=== PATIENT | female | born 1990 | race Caucasian/White ===

== ENCOUNTER 2017-05-29 15:54 | Emergency (ER) | payer OTHER ==
[2017-05-29] MEDS ORDERED: Lidocaine 1% 30 ML SDV INJECT ONE (16:18)
[2017-05-29] MEDS ORDERED: Take Home: traMADol 50 MG, 4 Tab Pack PO ONE (17:01)
[2017-05-29 18:19] VITALS: BP 135/85
--- NOTE | 2017-05-30 04:42 | ER ---
Date of Service: 05/29/2017 SUBJECTIVE: Donna presents to the emergency room with complaints of pain to her left great toe. She states that she stubbed the toe while walking through water last evening. She states that after she stubbed her toe she noticed that her toenail had partially removed from the edge of the nail matrix of the left great toe. She denies any injury other than what is isolated to her left great toe. PAST MEDICAL HISTORY: 1. Endometriosis. 2. Interstitial cystitis. 3. Depression. 4. Anxiety. 5. Willebrand syndrome. MEDICATION: Klonopin 0.5 mg p.o. b.i.d. p.r.n. REVIEW OF SYSTEMS: Denies any injury other than what is isolated to left great toe. She states that she is able to move the extremity. Denies any numbness or tingling in the extremity. PHYSICAL EXAMINATION: General: This is a 26-year-old female patient, who is in mild amount of distress. Vital Signs: Blood pressure is 135/85, pulse rate is 81, temperature is 36.9, and respiratory rate 16. Skin: Warm, pink, and dry. Musculoskeletal: The patient does have edema to the left great toe. She also does have discoloration on underside of the toenail consistent with subungual hematoma. Neurologic: Her range of motion to the toe was within normal limits. RADIOGRAPHIC DATA: Radiographs of the patient's left great toe were obtained. There, it did not appear to be any obvious fracture or dislocation. EMERGENCY ROOM COURSE: The patient's toe was prepped and draped in usual sterile fashion. A total of 5 mL of 1% lidocaine was used to anesthetize the digit. The nail bed was trephinated with 3 nails using Bovie cautery pen. There was some expulsion of small amount of blood through the nail. The patient tolerated this well. She remained stable in my care in the emergency room. ASSESSMENT: Contusion to left great toe with subungual hematoma. PLAN: Keep the toe wrapped for the next 48 hours then she should soak the toe approximately 3 times daily to help keep the trephination holes open and draining. Return to the emergency room in the next 5 to 7 days if continuing to have discomfort for repeat radiographs. All questions answered. MWK: 05/30/2017 03:38:05 MODL: 05/30/2017 04:31:12 /[id number]
== END 2017-05-29 17:15 | disposition home or self-care (01) ==
LOC: VM.ED 15:54
DX: S90.112A Contusion of left great toe without damage to nail, initial encounter (principal); F41.9 Anxiety disorder, unspecified; F32.9 Major depressive disorder, single episode, unspecified; Z88.8 Allergy status to other drugs, medicaments and biological substances; W22.8XXA Striking against or struck by other objects, initial encounter
CPT/HCPCS: 11740; 73660; 99283; A9270

== ENCOUNTER 2017-12-05 12:49 | Emergency (ER) | payer BC, OTHER ==
[2017-12-05 13:27] VITALS: BP 126/59
[2017-12-05] MEDS ORDERED: Sodium Chloride 0.9% 1,000 ML IV ONE (13:30)
[2017-12-05] MEDS ORDERED: Ondansetron 4 MG/2 ML SDV IVPUSH ONE (13:30)
[2017-12-05] MEDS ORDERED: HYDROmorphone 1 MG/ML Syringe IVPUSH ONE (13:30)
[2017-12-05 14:20] LABS: CHLORIDE,CL 103 mmol/L (98-107); SODIUM,NA 141 mmol/L (136-145)
[2017-12-05] MEDS ORDERED: Iopamidol 612 MG/ML 100 ML Bottle IVPUSH ONE (14:48)
[2017-12-05] MEDS ORDERED: Metoclopramide 10 MG/2 ML SDV IVPUSH ONE (15:15)
--- NOTE | 2017-12-06 02:18 | EDM.PDOC ---
ED HPI GENERAL MEDICAL PROBLEM - General Chief Complaint: Abdominal Pain Stated Complaint: ABDOMINAL PAIN Time Seen by Provider: 12/05/17 12:49 Source of Information: Reports: Patient History Limitations: Reports: No Limitations - History of Present Illness INITIAL COMMENTS - FREE TEXT/NARRATIVE: Pt. presents to ER with complaints of upper abdominal pain, localizing more in the RUQ. Pt. had a gallbladder US last Tuesday and states that she was also started on ranitidine at that time. She states that shes not experiencing any fever or chills. No weakness. No nausea/vomiting. The ultrasound revealed evidence of R sided hydronephrosis. She has no hematuria and no history of fever or chills. She denies any substernal chest pain. Onset Date: 11/28/17 Location: Reports: Abdomen Quality: Reports: Ache, Pressure Severity: Severe Improves with: Reports: None Context: Reports: Activity, Lifting Associated Symptoms: Reports: Nausea/Vomiting. Denies: No Other Symptoms, Fever /Chills Epigastric Pain Score (Numeric/FACES): 3 - Related Data Allergies Allergy/AdvReac Type Severity Reaction Status Date / Time No Known Allergies Allergy Verified 12/05/17 17:49 Home Meds: Home Meds Acetaminophen/Codeine [Tylenol with Codeine No.3 300MG/30MG] 1 tab PO Q4H PRN [History] Norethindrone-E.estradiol-Iron [Blisovi 24 Fe Tablet] 1 tab PO ASDIRECTED [History] Ranitidine HCl [Ranitidine] 150 mg PO BID 12/05/17 [History] Past Medical History Genitourinary History: Reports: Other (See Below) Other Genitourinary History: interstitial cystitis [employer] History: Reports: Endometriosis, Other (See Below) Other OB/BYN History: ovarian cysts, Psychiatric History: Reports: ADD, Anxiety, Depression, Panic Attack Hematologic History: Reports: Other (See Below) Other Hematologic History: Bentley Dawkins - Past Surgical History GI Surgical History: Reports: Appendectomy Female Surgical History: Reports: Other (See Below) Other Female Surgeries/Procedures: laparoscopic X3 for endometriosis Social & Family History - Tobacco Use Smoking Status *Q: Never Smoker - Recreational Drug Use Recreational Drug Use: Yes Drug Use in Last 12 Months: Yes Recreational Drug Type: Reports: Marijuana/Hashish Recreational Drug Use Frequency: Rarely ED ROS GENERAL - Review of Systems Review Of Systems: See Below Constitutional: Reports: No Symptoms HEENT: Reports: No Symptoms Respiratory: Reports: No Symptoms Cardiovascular: Reports: No Symptoms Endocrine: Reports: No Symptoms GI/Abdominal: Reports: Abdominal Pain, Anorexia, Decreased Appetite, Nausea, Vomiting. Denies: Black Stool, Bloody Stool, Constipation, Diarrhea, Hematochezia, Stool Incontinence : Reports: No Symptoms Musculoskeletal: Reports: No Symptoms Skin: Reports: No Symptoms Neurological: Reports: No Symptoms, Paresthesia, Pre-Existing Deficit Psychiatric: Reports: No Symptoms Hematologic/Lymphatic: Reports: No Symptoms Immunologic: Reports: No Symptoms ED EXAM, GI/ABD - Physical Exam Exam: See Below Exam Limited By: No Limitations General Appearance: Alert, WD/WN, No Apparent Distress Eyes: Bilateral: Normal Appearance, EOMI Nose: Normal Inspection, Normal Mucosa, No Blood Throat/Mouth: Normal Inspection, Normal Lips, Normal Teeth, Normal Gums, Normal Oropharynx, Normal Voice, No Airway Compromise Head: Atraumatic, Normocephalic Neck: Normal Inspection, Supple, Non-Tender, Full Range of Motion Respiratory/Chest: No Respiratory Distress, Lungs Clear, Normal Breath Sounds, No Accessory Muscle Use, Chest Non-Tender Cardiovascular: Normal Peripheral Pulses, Regular Rate, Rhythm, No Edema, No Gallop, No JVD, No Murmur, No Rub GI/Abdominal Exam: Normal Bowel Sounds, Soft, Non-Tender, No Organomegaly, No Distention, No Abnormal Bruit, No Mass, Pelvis Stable (Female) Exam: Deferred Rectal (Female) Exam: Deferred Back Exam: Normal Inspection, Full Range of Motion, NT Extremities: Normal Inspection, Normal Range of Motion, Non-Tender, Normal Capillary Refill, No Pedal Edema Neurological: Alert, Oriented, CN II-XII Intact, Normal Cognition, Normal Gait, Normal Reflexes, No Motor/Sensory Deficits Psychiatric: Normal Affect, Normal Mood Skin Exam: Warm, Dry, Intact, Normal Color, No Rash Lymphatic: No Adenopathy Course - Vital Signs Last Recorded V/S: Last Vital Signs Temp 36.9 C 12/05/17 13:00 Pulse 85 12/05/17 13:00 Resp 16 12/05/17 13:00 BP 126/59 L 12/05/17 13:00 Pulse Ox 99 12/05/17 13:00 - Orders/Labs/Meds Orders: Active Orders 24 hr Category Date Time Status Abdomen Pelvis w Cont [CT] Stat Exams 12/05/17 14:44 Taken Labs: Laboratory Tests 12/05/17 12/05/17 12/05/17 Range/Units 13:30 13:45 13:45 WBC 8.2 (4.0-10.0) x10^3/uL RBC 4.10 (4.00-5.50) x10^6/uL Hgb 13.2 (12.0-16.0) g/dL Hct 38.8 (33.0-47.0) % MCV 94.6 H (78.0-93.0) fL MCH 32.2 H (26.0-32.0) pg MCHC 34.0 (32.0-36.0) g/dL RDW Coeff of Meghan 12.0 (10.0-15.0) % Plt Count 285 (130-400) x10^3/uL Neut % (Auto) 61.1 (50.0-80.0) % Lymph % (Auto) 28.0 (25.0-50.0) % Greene % (Auto) 7.8 (2.0-11.0) % Eos % (Auto) 2.9 (0.0-4.0) % Baso % (Auto) 0.2 (0.2-1.2) % Sodium 141 (136-145) mmol/L Potassium 4.2 (3.5-5.1) mmol/L Chloride 103 (98-107) mmol/L Carbon Dioxide 27 (21-32) mmol/L BUN 13 (7-18) mg/dL Creatinine 0.7 (0.55-1.02) mg/dL Est Cr Clr Drug Dosing 92.37 mL/min Estimated GFR (MDRD) > 60 Glucose 77 (74-106) mg/dL Calcium 9.3 (8.5-10.1) mg/dL Corrected Calcium 8.98 (8.5-10.1) mg/dL Total Bilirubin 0.4 (0.2-1.0) mg/dL AST 15 (15-37) U/L ALT 25 (14-59) U/L Alkaline Phosphatase 62 (46-116) U/L C-Reactive Protein < 0.2 (<=0.9) mg/dL Total Protein 7.7 (6.4-8.2) g/dL Albumin 4.4 (3.4-5.0) g/dL Globulin 3.3 Albumin/Globulin Ratio 1.33 Amylase 57 (25-115) U/L Urine Color Yellow (YELLOW) Urine Appearance Cloudy H (CLEAR) Urine pH 7.5 (5.0-8.0) Ur Specific [place] 1.020 Urine Protein Negative (NEGATIVE) mg/dL Urine Glucose (UA) Negative (NEGATIVE) mg/dL Urine Ketones Negative (NEGATIVE) mg/dL Urine Occult Blood Negative (NEGATIVE) Urine Nitrite Negative (NEGATIVE) Urine Bilirubin Negative (NEGATIVE) Urine Urobilinogen 0.2 (0.2) EU/dL Ur Leukocyte Esterase Trace H (NEGATIVE) Urine RBC 0-5 (NOT SEEN) /HPF Urine WBC 5-10 H (NOT SEEN) /HPF Ur Squamous Epith Cells Many H (NEGATIVE) /HPF Urine Bacteria Moderate H (NEGATIVE) /HPF Urine Mucus Few H (NEGATIVE) /LPF POC Urine HCG, Qual 12/05/17 Range/Units 13:45 WBC (4.0-10.0) x10^3/uL RBC (4.00-5.50) x10^6/uL Hgb (12.0-16.0) g/dL Hct (33.0-47.0) % MCV (78.0-93.0) fL MCH (26.0-32.0) pg MCHC (32.0-36.0) g/dL RDW Coeff of Meghan (10.0-15.0) % Plt Count (130-400) x10^3/uL Neut % (Auto) (50.0-80.0) % Lymph % (Auto) (25.0-50.0) % Greene % (Auto) (2.0-11.0) % Eos % (Auto) (0.0-4.0) % Baso % (Auto) (0.2-1.2) % Sodium (136-145) mmol/L Potassium (3.5-5.1) mmol/L Chloride (98-107) mmol/L Carbon Dioxide (21-32) mmol/L BUN (7-18) mg/dL Creatinine (0.55-1.02) mg/dL Est Cr Clr Drug Dosing mL/min Estimated GFR (MDRD) Glucose (74-106) mg/dL Calcium (8.5-10.1) mg/dL Corrected Calcium (8.5-10.1) mg/dL Total Bilirubin (0.2-1.0) mg/dL AST (15-37) U/L ALT (14-59) U/L Alkaline Phosphatase (46-116) U/L C-Reactive Protein (<=0.9) mg/dL Total Protein (6.4-8.2) g/dL Albumin (3.4-5.0) g/dL Globulin Albumin/Globulin Ratio Amylase (25-115) U/L Urine Color (YELLOW) Urine Appearance (CLEAR) Urine pH (5.0-8.0) Ur Specific [place] Urine Protein (NEGATIVE) mg/dL Urine Glucose (UA) (NEGATIVE) mg/dL Urine Ketones (NEGATIVE) mg/dL Urine Occult Blood (NEGATIVE) Urine Nitrite (NEGATIVE) Urine Bilirubin (NEGATIVE) Urine Urobilinogen (0.2) EU/dL Ur Leukocyte Esterase (NEGATIVE) Urine RBC (NOT SEEN) /HPF Urine WBC (NOT SEEN) /HPF Ur Squamous Epith Cells (NEGATIVE) /HPF Urine Bacteria (NEGATIVE) /HPF Urine Mucus (NEGATIVE) /LPF POC Urine HCG, Qual Negative Meds: Medications Discontinued Medications Generic Name Dose Route Start Last Admin Trade Name Freq PRN Reason Stop Dose Admin Hydromorphone HCl 1 mg 12/05/17 13:30 12/05/17 13:54 Dilaudid IVPUSH 12/05/17 13:31 1 mg ONETIME ONE Administration Sodium Chloride 1,000 mls @ 1,000 mls/hr 12/05/17 13:30 12/05/17 13:57 Normal Saline IV 12/05/17 14:29 1,000 mls/hr ONETIME ONE Administration Iopamidol 100 ml 12/05/17 14:48 12/05/17 15:12 Isovue-300 (61%) IVPUSH 12/05/17 14:49 100 ml ONETIME ONE Administration Metoclopramide HCl 10 mg 12/05/17 15:15 12/05/17 15:28 Reglan IVPUSH 12/05/17 15:16 10 mg ONETIME ONE Administration Ondansetron HCl 4 mg 12/05/17 13:30 12/05/17 13:57 Zofran IVPUSH 12/05/17 13:31 4 mg ONETIME ONE Administration - Radiology Interpretation Free Text/Narrative:: CT abd. pelvis with contrast obtained. No acute pathology noted. Departure - Departure Time of Disposition: 16:25 Disposition: Home, Self-Care 01 Clinical Impression: Epigastric abdominal pain - Discharge Information Instructions: Acetaminophen; Hydrocodone tablets or capsules, Gastritis, Adult , [id number], Ondansetron oral dissolving tablet, Peptic Ulcer, [id number], Pantoprazole tablets Referrals: Lindsey Nam MD [Primary Care Provider] - Forms: ED Department Discharge Additional Instructions: Collect stool and return to ER lab for analysis. Start Protonix 40mg once daily. Drink plenty of fluids. Zofran ODT 4mg every 6-8 hours for nausea. Spencer 5/325mg 1 every 6 hours as needed for pain. Follow-up with Dr. Nam in 2 weeks. - My Orders Last 24 Hours: My Active Orders 12/05/17 14:44 Abdomen Pelvis w Cont [CT] Stat - Assessment/Plan Last 24 Hours: My Active Orders 12/05/17 14:44 Abdomen Pelvis w Cont [CT] Stat
== END 2017-12-05 16:25 | disposition home or self-care (01) ==
LOC: VM.ED 12:49
DX: R10.13 Epigastric pain (principal)
CPT/HCPCS: 36415; 74177; 80053; 81001; 81025; 82150; 85025; 86140; 96361; 96374; 96375; 99284; J1170; J2405; J2765; J7030; Q9967